=== PATIENT | female | born 1970 | race Caucasian/White ===

== ENCOUNTER → 2017-06-04 | Outpatient (CLI) | payer BC ==
[~2017-06-04] MED LIST: HCTZ12.5TAB PO; K-TAB20 PO; NORCO 325 MG-51 TAB PO; POTASSIUM75 MG PO; SUDAFED 12 HOU120 MG PO; SYNTHROID 0.0.025 MG PO; ULTRAM 50MG TAB50 MG PO; ZYRTEC 10MG10 MG PO; [UNRECOGNIZED DRUG - REMARK] PO
== END ==
LOC: MC.RAD 09:20
DX: Z12.31 Encounter for screening mammogram for malignant neoplasm of breast (principal)

== ENCOUNTER → 2018-07-17 | Outpatient (CLI) | payer BC | LOC: MC.RAD 08:58 | DX: Z12.31 Encounter for screening mammogram for malignant neoplasm of breast (principal) ==

== ENCOUNTER → 2019-09-10 | Outpatient (CLI) | payer BC | LOC: COL.RAD 12:05 | DX: E04.2 Nontoxic multinodular goiter (principal) ==

== ENCOUNTER → 2021-03-02 | Outpatient (CLI) | payer BC | LOC: MC.RAD 01-23 08:15 | DX: Z12.31 Encounter for screening mammogram for malignant neoplasm of breast (principal) ==

== ENCOUNTER → 2021-12-26 | Outpatient (CLI) | payer OTHER | LOC: COL.RAD 15:50 | DX: E04.1 Nontoxic single thyroid nodule (principal) ==

== ENCOUNTER → 2022-07-18 | Outpatient (CLI) | payer OTHER | LOC: MC.RAD 08:30 | DX: Z12.31 Encounter for screening mammogram for malignant neoplasm of breast (principal) ==

== ENCOUNTER → 2024-01-07 | Outpatient (CLI) | payer OTHER | LOC: MC.RAD 10:15 | DX: Z12.31 Encounter for screening mammogram for malignant neoplasm of breast (principal); Z01.419 Encounter for gynecological examination (general) (routine) without abnormal findings ==